=== PATIENT | male | born 1975 | race Caucasian/White ===

== ENCOUNTER 2018-07-13 11:58 | Inpatient (IN) | payer OTHER | END 2018-07-16 06:55 | disposition home or self-care (01) | LOC: YASAS 11:58 → Y6N 07-14 08:32 ==

== ENCOUNTER 2018-09-01 09:51 | Inpatient (IN) | payer OTHER ==
[2018-09-01 10:28] VITALS: BMI 20.9
--- NOTE | 2018-09-01 12:24 | HP ---
COWS - Scale Resting Pulse: 0= [place] 80 or Below Sweatin= Chills/Flushing Restless Observation: 0= Sits Still Pupil Size: 0= Normal to Room Light Bone or Joint Aches: 2= Severe Diffuse Aches Runny Nose/ Eye Tearin= None GI Upset > 30mins: 1= Stomach Cramp Tremor Observation: 0= None Yawning Observation: 0= None Anxiety or Irritability: 1=Feels Anxious/Irritable Goose Flesh Skin: 0=Smooth Skin COWS Score: 5 CIWA Score - Admission Criteria [facility] Guidelines: Admission for Medically Managed Detox: Requires at least one of the followin. CIWA greater than 12 2. Seizures within the past 24 hours 3. Delirium tremens within the past 24 hours 4. Hallucinations within the past 24 hours 5. Acute intervention needed for co occurring medical disorder 6. Acute intervention needed for co occurring psychiatric disorder 7. Severe withdrawal that cannot be handled at a lower level of care (continued vomiting, continued diarrhea, abnormal vital signs) requiring intravenous medication and/or fluids 8. Admission ROS [facility] - [facility] Chief Complaint: seeking help for heroin use Allergies/Adverse Reactions: Allergies Allergy/AdvReac Type Severity Reaction Status Date / Time Fish Containing Products Allergy Severe Difficulty Verified 09/01/18 10:19 Breathing History of Present Illness: 42 y/o/m here seeking help for heroin, xanax, and marijuana use. He was free of all drug use for the 4 years until 2 months ago when he started to use heroin due to personal stress. He was here for detox on 07/13 and was drug free for one week until his brother which triggered him to start using again. He is from [place] and has been here visiting his kids since April of this year. He has been using 9-11 bags of heroin daily by inhaling, last use this morning. He denies any IV use ever. When he doesn't use heroin he starts to shake, gets nauseous and vomits, and gets diarrhea. He has been using Xanax daily for the last 2 weeks because he felt that the heroin was not strong enough , he has been using 1 stick a day, last use last night. He is buying the Xanax off the streets. He smokes 3-4 blunts of Marijuana a day, last use this morning. He also smokes half a pack of cigarettes everyday. PMHx of Bipolar, he has used Klonopin, Seroquel, Depakote in the past but has not taken these medications in over 3 years. He denies any history of seizures or blackouts. He denies alcohol use. He denies any surgical history. Patient complains of pain in both feet due to a history of heel spurs. He states it is painful for him to walk on hard floors without using sneakers. He is currently living with family and unemployed. He gets money for drugs from his family but states they are no aware of his use. - Ebola screening Have you traveled outside of the country in the last 21 days: No Have you had contact with anyone from an Ebola affected area: No Do you have a fever: No - Review of Systems Constitutional: Chills, Loss of Appetite Respiratory: reports: No Symptoms reported Cardiac: reports: No Symptoms Reported GI: reports: No Symptoms Reported Musculoskeletal: reports: Back Pain, Joint Pain, Muscle Pain Integumentary: reports: No Symptoms Reported Neuro: reports: No Symptoms reported Endocrine: reports: Excessive Sweating Hematology: reports: No Symptoms Reported Psychiatric: reports: Agitated, Anxious Other Systems: Reviewed and Negative Patient History - Patient Medical History Hx Anemia: No Hx Asthma: No Hx Chronic Obstructive Pulmonary Disease (COPD): No Hx Cancer: No Hx Cardiac Disorders: No Hx Congestive Heart Failure: No Hx Hypertension: No Hx Hypercholesterolemia: No Hx Pacemaker: No HX Cerebrovascular Accident: No Hx Seizures: No Hx Dementia: No Hx Diabetes: No Hx Gastrointestinal Disorders: No Hx Liver Disease: No Hx Genitourinary Disorders: No Hx Sexually Transmitted Disorders: No Hx Renal Disease (ESRD): No Hx Thyroid Disease: No Hx Human Immunodeficiency Virus (HIV): No Hx Hepatitis C: No Hx Depression: Yes Hx Suicide Attempt: No Hx Bipolar Disorder: Yes (non compliant with meds) Hx Schizophrenia: No Other Medical History: no suicidal or homicidal ideations - Patient Surgical History Past Surgical History: No Hx Neurologic Surgery: No Hx Cataract Extraction: No Hx Cardiac Surgery: No Hx Lung Surgery: No Hx Breast Surgery: No Hx Breast Biopsy: No Hx Abdominal Surgery: No Hx Appendectomy: No Hx Cholecystectomy: No Hx Genitourinary Surgery: No Hx Section: No Hx Orthopedic Surgery: No Anesthesia Reaction: No - PPD History Previous Implant?: Yes Documented Results: Negative w/o proof Implanted On Prior [facility] Admission?: Yes Date: 07/15/18 Results: 0 mm PPD to be Administered?: No - Smoking Cessation Smoking history: Current every day smoker Have you smoked in the past 12 months: Yes Aproximately how many cigarettes per day: 10 Cigars Per Day: 0 Hx Chewing Tobacco Use: No Initiated information on smoking cessation: Yes 'Breaking Loose' booklet given: 09/01/18 - Substance & Tx. History Hx Alcohol Use: Yes Substance Use Type: Alcohol, Heroin, Marijuana - Substances abused Heroin Substance route: Inhalation Frequency: Daily Amount used: 8.5 bags Age of first use: 29 Date of last use: 09/01/18 Marijuana/Hashish Substance route: Smoking Frequency: Daily Amount used: 1 oz Age of first use: 15 Date of last use: 08/31/18 Alprazolam (Xanax) Substance route: Oral Frequency: Daily Amount used: 2 sticks Age of first use: 35 Date of last use: 08/31/18 Family Disease History - Family Disease History Family Disease History: Diabetes: Father (ALCOHOLIC,HTN), Heart Disease: Father , Mother (HTN), CA: Father, Other: Father Admission Physical Exam S - Vital Signs Vital Signs: Vital Signs - 24 hr 09/01/18 09/01/18 10:12 10:58 Temperature 98.1 F 98.1 F Pulse Rate 67 67 Respiratory 18 18 Rate Blood Pressure 109/65 109/65 - Physical General Appearance: Yes: No Apparent Distress HEENTM: Yes: EOMI, Normocephalic Respiratory: Yes: Lungs Clear, Normal Breath Sounds, No Accessory Muscle Use Neck: Yes: Supple Cardiology: Yes: Regular Rhythm, Regular Rate, S1, S2. No: Murmur Abdominal: Yes: Normal Bowel Sounds, Non Tender, Soft. No: Guarding, Rebound Musculoskeletal: Yes: Other (multiple bony protusions noted on left and right feet (L 2nd toe, 5th toe, base of 5th metatarsal, R 2nd toe, 3rd toe, 5th toe). Hallux Valgus of toes on both feet) Extremities: Yes: Normal Capillary Refill. 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, Fully Oriented, Alert, Motor Strength 5/5 Integumentary: Yes: Dry Cleared for Admission [facility] - Detox or Rehab [facility] Level of Care: Medically Supervised 2Day Detox Regimen/Protocol: Methadone Breathalyzer - Breathalyzer Breathalyzer: 0 Urine Drug Screen - Test Device Lot number: [id number] Expiration date: 06/16/20 - Control Is test valid?: Yes - Results Drug screen NEGATIVE: No Urine drug screen results: THC-Marijuana, MOP-Opiates, OXY-Oxycodone, MTD- Methadone, BZO-Benzodiazepines Inpatient Rehab Admission - Rehab Decision to Admit Inpatient rehab admission?: No
[2018-09-01] MEDS ORDERED: hydrOXYzine HCL 25 MG TABLET (FP) PO PRN (12:55)
[2018-09-01] MEDS ORDERED: MAG HYDROX/AL HYDROX/SIMETH 30 ML UNIT-DOSE CUP PO PRN (12:55)
[2018-09-01] MEDS ORDERED: MENTHOL/PHENOL 1 EACH UD MM PRN (12:55)
[2018-09-01] MEDS ORDERED: MAGNESIUM CITRATE 300 ML BOTTLE PO PRN (12:55)
[2018-09-01] MEDS ORDERED: IBUPROFEN 400 MG TABLET (FP) PO PRN (12:55)
[2018-09-01] MEDS ORDERED: MAGNESIUM HYDROX 2400MG/30ML ORAL SUSPENSION 30 ML CUP PO PRN (12:55)
[2018-09-01] MEDS ORDERED: BISMUTH SUBSALICYLATE 262 MG/15 ML BTL PO PRN (12:55)
[2018-09-01] MEDS ORDERED: METHOCARBAMOL 500 MG TABLET PO PRN (12:55)
[2018-09-01] MEDS ORDERED: cloNIDine HCL 0.1 MG TABLET PO PRN (12:55)
[2018-09-01] MEDS ORDERED: MELATONIN 5 MG TABLETS PO PRN (12:55)
[2018-09-01] MEDS ORDERED: ACETAMINOPHEN 325 MG TABLET (FP) PO PRN ×2 (12:55)
[2018-09-01] MEDS ORDERED: METHADONE HCL 10 MG TABLET (FOR DETOX USE ONLY) PO ONE (13:55)
--- NOTE | 2018-09-01 16:05 | PN ---
Teaching Attending Note Name of Resident: Deann Mazariegos ATTENDING PHYSICIAN STATEMENT I saw and evaluated the patient. I reviewed the resident's note and discussed the case with the resident. I agree with the resident's findings and plan as documented. SUBJECTIVE:pt here requesting detox from opiate use , reports relapse 2 months ago , current daily use 9-11 bags herin via inhalation , denies IVDU . Benzo : xanax x 1 week , 1 stick/day denies etoh use tobacco : 1/2 ppd . OBJECTIVE: wnwd , mild distress . ASSESSMENT AND PLAN: Opioid dependence - Methadone taper sedative abuse - observation Nicotine dependence - nrt .
[2018-09-01 17:04] LABS: HEMATOCRIT 38.3 % (35.4-49); HEMOGLOBIN 12.9 GM/dL (11.7-16.9); MCH 30.5 pg (25.7-33.7); MCHC 33.8 g/dl (32.0-35.9); MEAN CELL VOLUME 90.1 fl (80-96); MEAN PLT VOLUME 8.8 fl (7.5-11.1); PLATELET COUNT 271 K/MM3 (134-434); RBC 4.25 M/mm3 (4.00-5.60)
[2018-09-01 17:06] LABS: ALBUMIN 4.2 g/dl (3.4-5.0); BILIRUBIN,TOTAL 0.5 mg/dL (0.2-1); BLOOD UREA NITROGEN 14.9 mg/dL (7-18); CALCIUM 8.9 mg/dL (8.5-10.1); CREATININE 0.8 mg/dL (0.55-1.3); POTASSIUM 4.2 mmol/L (3.5-5.1); TOT PROT 7.8 g/dl (6.4-8.2)
[2018-09-01] MEDS: THIAMINE HCL 100 MG TABLET (FP) PO SCH (22:23)
[2018-09-02] MEDS: PRENATAL VITAMINS W/ FOLIC ACID TABLET (FP) PO SCH (09:56)
[2018-09-02] MEDS ORDERED: METHADONE HCL 5 MG TABLET (FOR DETOX USE ONLY) PO ONE (10:00)
--- NOTE | 2018-09-02 15:15 | PN ---
[facility] COWS - Scale Resting Pulse: 0= [place] 80 or Below Sweatin=Flushed/Facial Moisture Restless Observation: 1= Difficult to Sit Still Pupil Size: 0= Normal to Room Light Bone or Joint Aches: 2= Severe Diffuse Aches Runny Nose/ Eye Tearin= Runny Nose/Eyes GI Upset > 30mins: 0= None Tremor Observation of Outstretched Hands: 2= Slight Tremor Visible Yawning Observation: 0= None Anxiety or Irritability: 2=Irritable/Anxious Goose Flesh Skin: 0=Smooth Skin COWS Score: 11 [facility] Progress Note (SOAP) Subjective: hot/cold sweats poor appetite interrupted sleep muscle cramping Objective: 09/02/18 15:13 Vital Signs Temperature 97.8 F 09/02/18 14:07 Pulse Rate 75 09/02/18 14:07 Respiratory Rate 18 09/02/18 14:07 Blood Pressure 152/93 09/02/18 14:07 O2 Sat by Pulse Oximetry (%) Laboratory Tests 09/01/18 09/01/18 09/01/18 13:20 13:20 13:20 WBC 8.0 RBC 4.25 Hgb 12.9 Hct 38.3 MCV 90.1 MCH 30.5 MCHC 33.8 RDW 14.0 Plt Count 271 MPV 8.8 Sodium 137 Potassium 4.2 Chloride 102 Carbon Dioxide 30 Anion Gap 5 L BUN 14.9 Creatinine 0.8 Est GFR (CKD-EPI)AfAm 129.51 Est GFR (CKD-EPI)NonAf 111.74 Random Glucose 83 Calcium 8.9 Total Bilirubin 0.5 AST 13 L ALT 20 Alkaline Phosphatase 73 Total Protein 7.8 Albumin 4.2 RPR Titer Nonreactive labs noted aaox3 ambulating no acute distress Assessment: 09/02/18 15:14 withdrawal sx Plan: continue detox increase fluids ensure bid roboxine prn
[2018-09-02] MEDS: THIAMINE HCL 100 MG TABLET (FP) PO SCH (22:29)
[2018-09-03] MEDS: ONDANSETRON *ODT* 4 MG TABLET SL PRN ×2 (00:02→11:27)
[2018-09-03] MEDS ORDERED: TRIMETHOBENZAMIDE HCL 200MG/2ML INJ IM ONE (08:56)
[2018-09-03 09:43] VITALS: BP 110/54; PULSE 55; TEMP 98.1
--- NOTE | 2018-09-03 09:45 | PN ---
[facility] CIWA - CIWA Score Nausea/Vomitin-Mild Nausea/No Vomiting Muscle Tremors: 3 Anxiety: 2 Agitation: 3 Paroxysmal Sweats: 2 Orientation: 0-Oriented Tacttile Disturbances: 0-None Auditory Disturbances: 0-None Visual Disturbances: 0-None Headache: 0-None Present CIWA-Ar Total Score: 11 S Progress Note (SOAP) Subjective: nausea vomiting interrupted sleep body aches restless Objective: 09/03/18 09:44 Vital Signs Temperature 98.1 F 09/03/18 09:42 Pulse Rate 55 L 09/03/18 09:42 Respiratory Rate 16 09/03/18 09:42 Blood Pressure 110/54 L 09/03/18 09:42 O2 Sat by Pulse Oximetry (%) Laboratory Tests 09/01/18 09/01/18 09/01/18 13:20 13:20 13:20 WBC 8.0 RBC 4.25 Hgb 12.9 Hct 38.3 MCV 90.1 MCH 30.5 MCHC 33.8 RDW 14.0 Plt Count 271 MPV 8.8 Sodium 137 Potassium 4.2 Chloride 102 Carbon Dioxide 30 Anion Gap 5 L BUN 14.9 Creatinine 0.8 Est GFR (CKD-EPI)AfAm 129.51 Est GFR (CKD-EPI)NonAf 111.74 Random Glucose 83 Calcium 8.9 Total Bilirubin 0.5 AST 13 L ALT 20 Alkaline Phosphatase 73 Total Protein 7.8 Albumin 4.2 RPR Titer Nonreactive labs noted aaox3 ambulating no acute distress Assessment: 09/03/18 09:45 withdrawal sx Plan: continue detox increase fluids tigan IM x one
[2018-09-03] MEDS ORDERED: METHADONE HCL 10 MG TABLET (FOR DETOX USE ONLY) PO ONE (10:00)
[2018-09-03] MEDS: PRENATAL VITAMINS W/ FOLIC ACID TABLET (FP) PO SCH (10:44)
[2018-09-04] MEDS ORDERED: METHADONE HCL 5 MG TABLET (FOR DETOX USE ONLY) PO ONE (06:00)
== END 2018-09-03 11:55 | disposition left against medical advice (07) | DRG 770 ==
LOC: YASAS 09:51 → Y6N 13:26
PROVIDERS: ADMIT Surgery; ATTEND Surgery
PROC: HZ2ZZZZ Detoxification Services for Substance Abuse Treatment (ICD-10-PCS; principal; 2018-09-01)
DX: F11.23 Opioid dependence with withdrawal (principal); F13.10 Sedative, hypnotic or anxiolytic abuse, uncomplicated; F12.20 Cannabis dependence, uncomplicated; F17.210 Nicotine dependence, cigarettes, uncomplicated; F31.9 Bipolar disorder, unspecified; Z91.14 Patient's other noncompliance with medication regimen; Z91.013 Allergy to seafood
CPT/HCPCS: 36415; 80053; 85027; 86593; Q0162